=== PATIENT | female | born 1965 | race Caucasian/White ===

== ENCOUNTER 2017-10-14 10:42 | Emergency (ER) | payer MEDICAID ==
[2017-10-14 12:11] LABS: ADD MAN DIFF? NO
[2017-10-14 12:14] LABS: WHITE BLOOD COUNT 6.8 10^3/ul (4.8-10.8)
[2017-10-14 12:14] LABS: BASOPHILS % 0.1 % (0.0-2.0); EOSINOPHILS % 0.4 % (0.0-7.0); HEMATOCRIT 43.6 % (37.0-47.0); HEMOGLOBIN 14.4 g/dl (12.0-16.0); LYMPHOCYTES # 1.4 10^3/ul (0.8-2.9); LYMPHOCYTES % 21.1 % (15.0-51.0); MEAN CORPUSCULAR HEMOGLOBIN 30.8 pg (29.0-33.0); MEAN CORPUSCULAR VOLUME 93.2 fl (82.0-101.0); MEAN PLATELET VOLUME 9.8 fl (7.4-10.4); MONOCYTE # 0.5 10^3/ul (0.3-0.9); MONOCYTES % 7.2 % (0.0-11.0); NEUTROPHIL # 4.9 10^3/ul (1.6-7.5); NEUTROPHILS % 70.9 % (39.0-77.0); PLATELET COUNT 294 10^3/UL (140-415); RED BLOOD COUNT 4.68 10^6/ul (4.20-5.40); RED CELL DISTRIBUTION WIDTH 14.1 % (11.5-14.5)
[2017-10-14] MEDS: ACETAMINOPHEN 325 MG TAB PO ×2 (12:31→12:36)
[2017-10-14] MEDS: MECLIZINE 12.5 MG TAB PO (12:31)
[2017-10-14 12:32] LABS: ANION GAP 14 (8-16); BLOOD UREA NITROGEN 10 mg/dl (7-20); CALCIUM 9.5 mg/dl (8.4-10.2); CARBON DIOXIDE 28 mmol/L (21-31); CHLORIDE 106 mmol/L (97-110); CREATININE 0.59 mg/dl (0.44-1.00); GLUCOSE 116 mg/dl (70-220); INR 0.95; POTASSIUM 3.7 mmol/L (3.5-5.1); PROTIME 12.8 Sec (11.9-14.9); SODIUM 144 mmol/L (135-144)
[2017-10-14] MEDS ORDERED: ONDANSETRON (ODT) 4 MG TAB ODT (12:33)
[2017-10-14] MEDS: ONDANSETRON (ODT) 4 MG TAB ODT (12:39)
== END 2017-10-14 14:01 | disposition home or self-care (01) ==
LOC: E/R 14:01
DX: R51 Headache (principal)
CPT/HCPCS: 36415; 70450; 80048; 85025; 85610; 85730; 93005; 99285-25